=== PATIENT | female | born 1960 | race Caucasian/White ===

== ENCOUNTER → 2017-04-25 | Outpatient (CLI) | payer BC ==
[~2017-04-25] MED LIST: ASCO10004 PO; ASPI325T17 PO; BIFI4CAP PO; CRANBERRY PO; IBUP-1223 PO; LEVO100T PO; MAGNESIUM PO; RABE20TA18 PO; RABE20TA26 PO; VITA1TAB3 PO
== END | disposition home or self-care (01) ==
LOC: ROC 13:17
PROVIDERS: ATTEND Radiology Radiation Oncology
DX: C50.911 Malignant neoplasm of unspecified site of right female breast (principal); Z92.3 Personal history of irradiation
CPT/HCPCS: 99212; G0463

== ENCOUNTER → 2017-07-19 | Outpatient (CLI) | payer BC | END | disposition home or self-care (01) | LOC: ROC 14:31 | PROVIDERS: ATTEND Radiology Radiation Oncology | DX: C50.911 Malignant neoplasm of unspecified site of right female breast (principal) | CPT/HCPCS: 99212; G0463 ==

== ENCOUNTER → 2017-09-19 | Outpatient (CLI) | payer BC | LOC: CFH 14:26 | PROVIDERS: ATTEND Radiology Radiation Oncology | DX: Z12.31 Encounter for screening mammogram for malignant neoplasm of breast (principal) | CPT/HCPCS: 77063; 77067 ==

== ENCOUNTER → 2017-10-02 | Outpatient (CLI) | payer BC | LOC: ROC 15:15 | PROVIDERS: ATTEND Radiology Radiation Oncology | DX: C50.011 Malignant neoplasm of nipple and areola, right female breast (principal) | CPT/HCPCS: 99212; G0463 ==

== ENCOUNTER → 2018-08-20 | Outpatient (CLI) | payer BC | END | disposition home or self-care (01) | LOC: EDSTATUS 07-24 10:01 → ROC 09:51 | PROVIDERS: ATTEND Family Medicine | DX: C50.311 Malignant neoplasm of lower-inner quadrant of right female breast (principal) | CPT/HCPCS: 99213; G0463 ==

== ENCOUNTER 2019-01-23 08:34 | Outpatient (CLI) | payer BC | END 2019-01-23 23:59 | disposition home or self-care (01) | LOC: ROC 08:34 | PROVIDERS: ATTEND Radiology Radiation Oncology | DX: Z02.9 Encounter for administrative examinations, unspecified (principal) ==

== ENCOUNTER 2019-02-25 07:35 | Outpatient (CLI) | payer BC | END 2019-02-25 23:59 | disposition home or self-care (01) | LOC: ROC 07:35 | PROVIDERS: ATTEND Radiology Radiation Oncology | DX: C50.911 Malignant neoplasm of unspecified site of right female breast (principal) | CPT/HCPCS: 99213; G0463 ==

== ENCOUNTER → 2019-08-24 | Outpatient (CLI) | payer BC | END | disposition home or self-care (01) | LOC: ROC 07:08 | PROVIDERS: ATTEND Radiology Radiation Oncology | DX: C50.311 Malignant neoplasm of lower-inner quadrant of right female breast (principal) | CPT/HCPCS: 99212; G0463 ==

== ENCOUNTER → 2019-09-28 | Outpatient (CLI) | payer BC | END | disposition home or self-care (01) | LOC: CFH 14:24 | PROVIDERS: ATTEND Radiology Radiation Oncology | DX: Z12.31 Encounter for screening mammogram for malignant neoplasm of breast (principal); N64.89 Other specified disorders of breast; Z85.3 Personal history of malignant neoplasm of breast | CPT/HCPCS: 77063; 77067 ==

== ENCOUNTER 2020-04-07 11:03 | Outpatient (CLI) | payer BC ==
[~2020-04-07 11:03] MED LIST changes: +ASCO100018 PO; -ASCO10004 PO
== END 2020-04-07 23:59 | disposition home or self-care (01) ==
LOC: ROC 11:03
PROVIDERS: ATTEND Radiology Radiation Oncology
DX: Z08 Encounter for follow-up examination after completed treatment for malignant neoplasm (principal); C50.311 Malignant neoplasm of lower-inner quadrant of right female breast
CPT/HCPCS: 99213; G0463

== ENCOUNTER 2020-10-28 15:09 | Outpatient (CLI) | payer BC ==
[~2020-10-28 15:09] MED LIST changes: -RABE20TA26 PO; +RABE20TA29 PO
== END 2020-10-28 23:59 | disposition home or self-care (01) ==
LOC: CFH 15:09
PROVIDERS: ATTEND Radiology Radiation Oncology
DX: Z12.31 Encounter for screening mammogram for malignant neoplasm of breast (principal)
CPT/HCPCS: 77063; 77067